=== PATIENT | female | born 1930 | race Caucasian/White ===

== ENCOUNTER 2018-08-07 13:44 | Emergency (ER) | payer OTHER, MEDICARE ==
--- OUTSIDE RECORDS SUMMARY | 2018-08-07 13:48 | XMS REPORT | Clinical Summary ---
:1930 Author Organization [facility] Address [address] [place] [id number] Care Team Providers Name Role Phone Chandni Brown MD Primary Care Provider Allergies Active Allergy Reactions Severity Noted Date Comments Ciprofloxacin Diarrhea 08/11/2016 Penicillins Other (See Comments) 08/11/2016 Medications Medication Sig Dispensed Refills Start Date End Date Status aspirin (ECOTRIN) 81 MG Take 81 mg by 0 Active enteric coated tablet mouth daily. Active Problems Not on file Social History Tobacco Use Types Packs/Day Years Used Date Never Smoker Alcohol Use Drinks/Week oz/Week Comments No Sex Assigned at Date Recorded Not on file Job Start Date Occupation Industry Not on file Not on file Not on file Travel History Travel Start Travel End No recent travel history available. Last Filed Vital Signs Not on file Plan of Treatment Health Maintenance Due Date Last Done Comments SHINGLES VACCINES (#1) 1978 65+ PNEUMOCOCCAL VACCINE (2 of 2 - PPSV23) 1993 08/24/1993, 08/24/1993 INFLUENZA VACCINE 10/01/2018 12/19/2015 Results Not on fileafter 08/06/2017 Insurance Payer Benefit Plan / Subscriber ID Effective Dates Phone Address Type Group MEDICARE MEDICARE PART A xxxxxxxxxx 1993-Present [place], [place] Medicare AND B AARP AARP SUPPLEMENT xxxxxxxxxxx 2015-Present Commercial Advance Directives Patient has advance care planning documents on file. For more information, please contact:Ramiro [id number] [facility] [address]
--- OUTSIDE RECORDS SUMMARY | 2018-08-07 13:48 | XMS REPORT ---
:1930 [facility] Address [address] [place] [address] Dr. Scanlon [address] [place] [id number] Care Team Providers Name Role Phone Unavailable Unavailable Unavailable Problems This patient has no known problems. Allergies, Adverse Reactions, Alerts This patient has no known allergies or adverse reactions. Medications This patient has no known medications.
--- NOTE | 2018-08-07 15:12 | RAD REPORT ---
EXAM DESCRIPTION: Ana Cristina Single View08/07/2018 3:01 pm CLINICAL HISTORY: cough COMPARISON: 2017 FINDINGS: Right basilar opacities are present. Right hemidiaphragm remains elevated The lung appears clear of acute infiltrate. The heart is normal size IMPRESSION: Right basilar opacities probably representing atelectasis or pneumonia
[2018-08-07 15:19] LABS: Absolute Lymphocytes (CBC) 2.1 K/uL (0.7-4.9); Absolute Monocytes 0.6 K/uL (0.1-1.3); Absolute Neutrophil 5.4 K/uL (1.8-8.0); Basophils % 0.9 % (0-1.3); Eosinophils % 2.1 % (0-4.4); Hematocrit 41.3 % (36.0-45.0); Lymphocytes % 25.6 % (15.3-44.8); MPV 8.9 fL (7.6-11.3); Monocytes % 6.7 % (3.3-12.3); RBC Red Blood Cell Count 4.66 M/uL (3.86-4.86)
[2018-08-07 15:29] LABS: Protime INR 0.93
[2018-08-07 15:38] LABS: ALT/SGPT 33 U/L (12-78); AST/SGOT 19 U/L (15-37); Albumin 3.2 g/dL (3.4-5.0); Alkaline Phosphatase 129 U/L (45-117); BUN Blood Urea Nitrogen 20 mg/dL (7-18); Bicarbonate 32 mmol/L (21-32); Bilirubin Direct < 0.1 mg/dL (0-0.2); Bilirubin Total 0.2 mg/dL (0.2-1.0); Glucose Level 205 mg/dL (74-106); Magnesium 2.2 mg/dL (1.8-2.4); NT PRO-BNP 622 pg/mL (<450); Protein, Total 7.6 g/dL (6.4-8.2); Sodium Level 141 mmol/L (136-145); Troponin (Emerg Dept Use Only) < 0.02 ng/mL (0.0-0.045)
[2018-08-07] MEDS ORDERED: CEFTRIAXONE/SWI 1gm 1 GM/10 ML SYR ONE (16:41)
--- NOTE | 2018-08-07 17:05 | EDPHYS ---
Physician Documentation [facility] Name: Yue Castorena Age: 87 yrs Sex: Female : 1930 Arrival Date: 08/07/2018 Time: 14:07 Bed 26 Private MD: ED Physician Gelacio Florian HPI: 08/07 14:56 This 87 yrs old Female presents to ER via EMS with complaints of Leg Swelling.pm1 14:56 The patient presents with swelling. The complaints affect the left leg and right leg. pm1 Context: The problem was sustained at home, resulted from possible volume overload, the patient is not able to bear weight, the patient is not able to ambulate, wheelchair bound. 14:56 Onset: The symptoms/episode began/occurred and became worse today, chronic swelling to pm1 lower extermities. Modifying factors: The symptoms are alleviated by nothing. the symptoms are aggravated by nothing. Associated signs and symptoms: Pertinent positives: cough, Pertinent negatives calf tenderness, fever, shortness of breath, chest pain. Treatment prior to arrival includes: no previous treatment. Severity of symptoms: in the emergency department the symptoms are actually worse. The patient has not recently seen a physician, the patient's primary care provider is Dr. Billy. Historical: - Allergies: 14:22 PENICILLINS; ca1 - Home Meds: 14:22 donepezil 23 mg Oral tab 1 tab once daily [Active]; furosemide 20 mg Oral tab 3 tabs 2 ca1 times per day [Active]; verapamil 240 mg Oral TbER 1 tab once daily [Active]; sertraline 100 mg oral tab 1.5 tabs once daily [Active]; Zantac 150 mg Oral tab 1 tab once daily [Active]; Vitamin D3 2,000 unit Oral cap daily [Active]; memantine oral 28mg oral 1 cap once daily [Active]; anastrozole 1 mg oral tab 1 tab once daily [Active]; potassium chloride 10 mEq Oral cpER 1 cap once daily [Active]; - PMHx: 14:22 Depression; Diabetes - NIDDM; EDEMA; Hypertension; Kidney problems; Guaman"s Palsy; ca1 Breast Cancer; - PSHx: 14:22 Joint replacement; Knee Replacement (R); Lumpectomy; Cholecystectomy; Hysterectomy; ca1 - Immunization history:: Adult Immunizations up to date. - Social history:: Smoking status: Patient/guardian denies using tobacco. - Ebola Screening: : Patient negative for fever greater than or equal to 101.5 degrees Fahrenheit, and additional compatible Ebola Virus Disease symptoms Patient denies exposure to infectious person Patient denies travel to an Ebola-affected area in the 21 days before illness onset. ROS: 14:56 Constitutional: Negative for fever, chills, and weight loss, Eyes: Negative for injury, pm1 pain, redness, and discharge, ENT: Negative for injury, pain, and discharge, Neck: Negative for injury, pain, and swelling. 14:56 Abdomen/GI: Negative for abdominal pain, nausea, vomiting, diarrhea, and constipation, Back: Negative for injury and pain, MS/Extremity: Negative for injury and deformity, Skin: Negative for injury, rash, and discoloration, Neuro: Negative for headache, weakness, numbness, tingling, and seizure. 14:56 Cardiovascular: Positive for edema, Negative for chest pain, orthopnea, palpitations. 14:56 Respiratory: Positive for cough, Negative for shortness of breath, sputum production, wheezing. Exam: 14:56 Constitutional: This is a well developed, well nourished patient who is awake, alert, pm1 and in no acute distress. Head/Face: Normocephalic, atraumatic. Eyes: Pupils equal round and reactive to light, extra-ocular motions intact. Lids and lashes normal. Conjunctiva and sclera are non-icteric and not injected. Cornea within normal limits. Periorbital areas with no swelling, redness, or edema. ENT: Nares patent. No nasal discharge, no septal abnormalities noted. Tympanic membranes are normal and external auditory canals are clear. Oropharynx with no redness, swelling, or masses, exudates, or evidence of obstruction, uvula midline. Mucous membranes moist. Neck: Trachea midline, no thyromegaly or masses palpated, and no cervical lymphadenopathy. Supple, full range of motion without nuchal rigidity, or vertebral point tenderness. No Meningismus. Chest/axilla: Normal chest wall appearance and motion. Nontender with no deformity. No lesions are appreciated. 14:56 Abdomen/GI: Soft, non-tender, with normal bowel sounds. No distension or tympany. No guarding or rebound. No evidence of tenderness throughout. Back: No spinal tenderness. No costovertebral tenderness. Full range of motion. Skin: Warm, dry with normal turgor. Normal color with no rashes, no lesions, and no evidence of cellulitis. MS/ Extremity: Pulses equal, no cyanosis. Neurovascular intact. Full, normal range of motion. 14:56 Cardiovascular: Rate: normal, Rhythm: regular, Pulses: no pulse deficits are appreciated, Heart sounds: normal, normal S1and S2, no murmur, no rub, no gallop, Edema: pedal edema, that is mild. 14:56 Respiratory: the patient does not display signs of respiratory distress, Respirations: normal, Breath sounds: rales, are not appreciated, bronchial sounds, are not appreciated, decreased breath sounds, are heard in the right posterior lower lobe, rhonchi, are not appreciated, wheezing: is not appreciated. 14:56 Neuro: Orientation: is normal, Motor: is normal, moves all fours, Sensation: is normal, no obvious gross deficits. Vital Signs: 14:08 BP 125 / 54; Pulse 85; Resp 20; Temp 98.2(O); Pulse Ox 95% ; lt1 14:22 BP 109 / 52; Pulse 86; Resp 19 S; Temp 98.2(O); Pulse Ox 96% on R/A; Weight 83.91 kg; ca1 Height 5 ft. 2 in. (157.48 cm); Pain 0/10; 15:32 BP 153 / 55; Pulse 85; Resp 19 S; Temp 98(O); Pulse Ox 96% on R/A; ca1 16:23 BP 147 / 78; Pulse 83; Resp 18 S; Temp 98.1(O); Pulse Ox 97% ; ca1 17:33 BP 134 / 77; Pulse 95; Resp 17 S; Temp 98(O); Pulse Ox 96% on R/A; ca1 14:22 Body Mass Index 33.84 (83.91 kg, 157.48 cm) ca1 MDM: 14:32 Patient medically screened. pm1 17:04 Data reviewed: vital signs. Data interpreted: Pulse oximetry: on room air is 97 %. pm1 Interpretation: normal. Counseling: I had a detailed discussion with the patient and/or guardian regarding: the historical points, exam findings, and any diagnostic results supporting the discharge/admit diagnosis, lab results, radiology results, the need for outpatient follow up, to return to the emergency department if symptoms worsen or persist or if there are any questions or concerns that arise at home. 08/07 14:41 Order name: Basic Metabolic Panel; Complete Time: 15:51 pm1 08/07 14:41 Order name: CBC with Diff; Complete Time: 15:51 pm1 08/07 14:41 Order name: LFT's; Complete Time: 15:51 pm1 08/07 14:41 Order name: Magnesium; Complete Time: 15:51 pm1 08/07 14:41 Order name: NT PRO-BNP; Complete Time: 15:51 pm1 08/07 14:41 Order name: PT-INR; Complete Time: 15:51 pm1 08/07 14:41 Order name: Troponin (emerg Dept Use Only); Complete Time: 15:51 pm1 08/07 14:41 Order name: XRAY Chest (1 view) pm1 08/07 14:41 Order name: EKG; Complete Time: 14:47 pm1 08/07 15:32 Order name: RAD; Complete Time: 15:51 EDMS 08/07 15:53 Order name: Procalcitonin; Complete Time: 17:04 pm1 08/07 15:53 Order name: Lactate; Complete Time: 16:46 pm1 08/07 15:53 Order name: Blood Culture Adult (2) pm08/07 14:41 Order name: Cardiac monitoring; Complete Time: 15:06 pm1 08/07 14:41 Order name: EKG - Nurse/Tech; Complete Time: 15:06 pm1 08/07 14:41 Order name: IV Saline Lock; Complete Time: 15:06 pm08/07 14:41 Order name: Labs collected and sent; Complete Time: 15:06 pm1 08/07 14:41 Order name: O2 Per Protocol; Complete Time: 15:06 pm1 08/07 14:41 Order name: O2 Sat Monitoring; Complete Time: 15:06 pm1 EC:52 Rate is 79 beats/min. Rhythm is regular. QRS [place] is Normal. No Q waves. T waves are pm1 Normal. No ST changes noted. Clinical impression: Normal ECG. Administered Medications: 16:36 Drug: Rocephin 1 grams Route: IV; Rate: calculated rate; Site: left antecubital; ca1 17:00 Follow up: Response: No adverse reaction; IV Status: Completed infusion ca1 Disposition: 08/08 07:28 Co-signature as Attending Physician, Gelacio Florian MD. rn Disposition: 08/07/18 17:05 Discharged to Home. Impression: Peripheral edema, Cough, Atelectasis. - Condition is Stable. - Discharge Instructions: Atelectasis, Adult, Cough, Adult, Peripheral Edema. - Prescriptions for Zithromax Z- [place] 250 mg Oral Tablet - take 1 tablet by ORAL route as directed for 5 days Day 1 - take two (2) tablets one time. Day 2, 3, 4 , 5 take one (1) tablet once daily.; 6 tablet. - Medication Reconciliation Form, Thank You Letter, Antibiotic Education, Prescription Opioid Use form. - Follow up: Emergency Department; When: As needed; Reason: Worsening of condition. Follow up: Private Physician; When: 2 - 3 days; Reason: Recheck today's complaints, Continuance of care, Re-evaluation by your physician. - Problem is new. - Symptoms have improved. Signatures: Dispatcher [employer] EDMS Gelacio Florian MD MD rn Marinas, Patrick, MALIK PROFESSOR OF BUSINESS ADMINISTRATION pm1 Lori Dennis RN RN ca1 Corrections: (The following items were deleted from the chart) 08/07 17:18 17:05 08/07/2018 17:05 Discharged to Home. Impression: Pedal edema. Condition is pm1 Stable. Forms are Medication Reconciliation Form, Thank You Letter, Antibiotic Education, Prescription Opioid Use. Follow up: Emergency Department; When: As needed; Reason: Worsening of condition. Follow up: Private Physician; When: 2 - 3 days; Reason: Recheck today's complaints, Continuance of care, Re-evaluation by your physician. Problem is new. Symptoms have improved. pm1 17:18 17:18 08/07/2018 17:05 Discharged to Home. Impression: Pedal edema; Cough; Atelectasis. pm1 Condition is Stable. Forms are Medication Reconciliation Form, Thank You Letter, Antibiotic Education, Prescription Opioid Use. Follow up: Emergency Department; When: As needed; Reason: Worsening of condition. Follow up: Private Physician; When: 2 - 3 days; Reason: Recheck today's complaints, Continuance of care, Re-evaluation by your physician. Problem is new. Symptoms have improved. pm1 17:36 17:18 08/07/2018 17:05 Discharged to Home. Impression: Peripheral edema; Cough; ca1 Atelectasis. Condition is Stable. Discharge Instructions: Atelectasis, Adult, Cough, Adult, Peripheral Edema. Forms are Medication Reconciliation Form, Thank You Letter, Antibiotic Education, Prescription Opioid Use. Follow up: Emergency Department; When: As needed; Reason: Worsening of condition. Follow up: Private Physician; When: 2 - 3 days; Reason: Recheck today's complaints, Continuance of care, Re-evaluation by your physician. Problem is new. Symptoms have improved. pm1
--- NOTE | 2018-08-07 17:05 | ER ---
Nurse's Notes [facility] Name: Yue Castorena Age: 87 yrs Sex: Female : 1930 Arrival Date: 08/07/2018 Time: 14:07 Bed 26 Private MD: Diagnosis: Peripheral edema;Cough;Atelectasis Presentation: 08/07 14:12 Presenting complaint: EMS states: we got called in for Lower Leg Edema , both legs that ca1 has gotten worst today. She also had on and off cough and worst today. Assisted living is afraid she might have fluid in her lungs. VS are stable. She has dementia. She appears confused but cooperative. Transition of care: patient [facility]. Onset of symptoms was August 07, 2018. Risk Assessment: Do you want to hurt yourself or someone else? Patient reports no desire to harm self or others. Initial Sepsis Screen: Does the patient meet any 2 criteria? No. Patient's initial sepsis screen is negative. Does the patient have a suspected source of infection? No. Patient's initial sepsis screen is negative. Care prior to arrival: None. 14:12 Method Of Arrival: EMS: [place] [id number] 14:12 Acuity: ABHIJIT 3 ca1 Triage Assessment: 14:22 General: Appears in no apparent distress. comfortable, Behavior is calm, cooperative, ca1 appropriate for age. Pain: Denies pain. Historical: - Allergies: 14:22 PENICILLINS; ca1 - Home Meds: 14:22 donepezil 23 mg Oral tab 1 tab once daily [Active]; furosemide 20 mg Oral tab 3 tabs 2 ca1 times per day [Active]; verapamil 240 mg Oral TbER 1 tab once daily [Active]; sertraline 100 mg oral tab 1.5 tabs once daily [Active]; Zantac 150 mg Oral tab 1 tab once daily [Active]; Vitamin D3 2,000 unit Oral cap daily [Active]; memantine oral 28mg oral 1 cap once daily [Active]; anastrozole 1 mg oral tab 1 tab once daily [Active]; potassium chloride 10 mEq Oral cpER 1 cap once daily [Active]; - PMHx: 14:22 Depression; Diabetes - NIDDM; EDEMA; Hypertension; Kidney problems; Guaman"s Palsy; ca1 Breast Cancer; - PSHx: 14:22 Joint replacement; Knee Replacement (R); Lumpectomy; Cholecystectomy; Hysterectomy; ca1 - Immunization history:: Adult Immunizations up to date. - Social history:: Smoking status: Patient/guardian denies using tobacco. - Ebola Screening: : Patient negative for fever greater than or equal to 101.5 degrees Fahrenheit, and additional compatible Ebola Virus Disease symptoms Patient denies exposure to infectious person Patient denies travel to an Ebola-affected area in the 21 days before illness onset. Screenin:10 Abuse screen: Denies threats or abuse. Denies injuries from another. Nutritional ca1 screening: No deficits noted. Tuberculosis screening: No symptoms or risk factors identified. Fall Risk Secondary diagnosis (15 points) dementia, IV access (20 points). Ambulatory Aid- Crutches/Cane/Walker (15 pts). Assessment: 14:10 General: Appears in no apparent distress. comfortable, Behavior is calm, cooperative, ca1 appropriate for age. Pain: Denies pain. Neuro: Level of Consciousness is awake, alert, obeys commands, Oriented to person. Cardiovascular: Heart tones S1 S2 present Capillary refill < 3 seconds Patient's skin is warm and dry. Rhythm is sinus rhythm. Respiratory: Airway is patent Respiratory effort is even, unlabored, Respiratory pattern is regular, symmetrical, Breath sounds are clear bilaterally. Respiratory: Parent/caregiver reports the patient having cough that is non-productive, since few days but worst today. GI: Abdomen is flat, non-distended, Bowel sounds present X 4 quads. Abd is soft and non tender X 4 quads. : No deficits noted. No signs and/or symptoms were reported regarding the genitourinary system. EENT: No deficits noted. No signs and/or symptoms were reported regarding the EENT system. Derm: Skin is intact, is healthy with good turgor, Skin is pink, warm \\T\\ dry. Musculoskeletal: Circulation, motion, and sensation intact. Capillary refill < 3 seconds, Swelling present in right foot, left foot, right leg and left leg. 15:17 Reassessment: Patient appears in no apparent distress at this time. Patient and/or ca1 family updated on plan of care and expected duration. Pain level reassessed. Patient is alert, oriented x 3, equal unlabored respirations, skin warm/dry/pink. Family at bedside. 16:20 Reassessment: Patient appears in no apparent distress at this time. Patient is alert, ca1 oriented x 3, equal unlabored respirations, skin warm/dry/pink. 17:33 Reassessment: Patient appears in no apparent distress at this time. Patient is alert, ca1 oriented x 3, equal unlabored respirations, skin warm/dry/pink. Assisted pt to wheelchair.. Nurse Tammi and Tomas assisted pt to car. Pt tolerated well. Family with pt. Vital Signs: 14:08 BP 125 / 54; Pulse 85; Resp 20; Temp 98.2(O); Pulse Ox 95% ; lt1 14:22 BP 109 / 52; Pulse 86; Resp 19 S; Temp 98.2(O); Pulse Ox 96% on R/A; Weight 83.91 kg; ca1 Height 5 ft. 2 in. (157.48 cm); Pain 0/10; 15:32 BP 153 / 55; Pulse 85; Resp 19 S; Temp 98(O); Pulse Ox 96% on R/A; ca1 16:23 BP 147 / 78; Pulse 83; Resp 18 S; Temp 98.1(O); Pulse Ox 97% ; ca1 17:33 BP 134 / 77; Pulse 95; Resp 17 S; Temp 98(O); Pulse Ox 96% on R/A; ca1 14:22 Body Mass Index 33.84 (83.91 kg, 157.48 cm) ca1 ED Course: 14:07 Patient arrived in ED. ss 14:12 Lori Dennis, FLAVIO is Primary Nurse. ca1 14:15 Triage completed. ca1 14:22 Arm band placed on right wrist. ca1 14:26 Ambrosio Gibbs NP is PHCP. pm1 14:26 Gelacio Florian MD is Attending Physician. pm1 14:30 Patient has correct armband on for positive identification. Placed in gown. Bed in low ca1 position. Call light in reach. Side rails up X2. 14:30 differential specialist on. Pulse ox on. NIBP on. Warm blanket given. ca1 14:30 No provider procedures requiring assistance completed. ca1 15:07 Initial lab(s) drawn, by me, sent to lab. Inserted saline lock: 22 gauge in right lt1 antecubital area, using aseptic technique. 16:03 Inserted saline lock: 22 gauge in left antecubital area, using aseptic technique. Blood ca1 collected. 16:05 First set of blood cultures drawn by me. ca1 16:21 IV discontinued, intact, bleeding controlled, No redness/swelling at site. Pressure ca1 dressing applied, lumpectomy and breast CA on R side. 16:35 Second set of blood cultures drawn by me. ca1 17:35 IV discontinued, intact, bleeding controlled, No redness/swelling at site. Pressure ca1 dressing applied. Administered Medications: 16:36 Drug: Rocephin 1 grams Route: IV; Rate: calculated rate; Site: left antecubital; ca1 17:00 Follow up: Response: No adverse reaction; IV Status: Completed infusion ca1 Outcome: 17:05 Discharge ordered by MD. pm1 17:36 Discharged to home via wheelchair, with family. ca1 17:36 Condition: stable 17:36 Discharge instructions given to DAUGTHERS Instructed on discharge instructions, follow up and referral plans. medication usage, Demonstrated understanding of instructions, follow-up care, medications, Prescriptions given X 1. 17:36 Patient left the ED. ca1 Signatures: Elizabeth Mcallister RN RN ss Ambrosio Gibbs, HOUSE ADMIN HOUSE ADMIN pm1 Lori Dennis RN RN ca1 Daphnie, Charu lt1 Corrections: (The following items were deleted from the chart) 15:17 14:10 Patient has correct armband on for positive identification. Placed in gown. Bed ca1 in low position. Call light in reach. Side rails up X2. ca1 15:17 14:10 differential specialist on. Pulse ox on. NIBP on. ca1 ca1 15:17 14:10 Warm blanket given. ca1 ca1 15:18 14:10 Musculoskeletal: Circulation, motion, and sensation intact. Capillary refill < 3 ca1 seconds, ca1 16:23 16:20 BP 105 / 55; Pulse 85bpm; Resp 19bpm; Spontaneous; Pulse Ox 96% RA; Temp 98F ca1 Oral; ca1
[2018-08-07 18:13] VITALS: BP 134/77; TEMP 98; O2SAT 96
--- NOTE | 2018-08-08 09:03 | EKG ---
Test Date: 2018-08-07 Test Time: 14:51:05 Clearing Inspector: KIMMY MEASUREMENT RESULTS: Intervals: Rate: 79 WA: 164 QRSD: 76 QT: 406 QTc: 465 [place]: P: 40 WA: 164 QRS: 7 T: 90 INTERPRETIVE STATEMENTS: Normal sinus rhythm Normal ECG Compared to ECG 01/24/2017 14:06:20 Sinus arrhythmia no longer present ST (T wave) deviation no longer present Electronically Signed On 08-08-18 09:00:54 CDT by Asif Bauer
== END 2018-08-07 17:36 | disposition home or self-care (01) ==
LOC: ER 13:44
DX: R60.9 Edema, unspecified (principal); R05 Cough; J98.11 Atelectasis; E11.9 Type 2 diabetes mellitus without complications; I10 Essential (primary) hypertension; C50.919 Malignant neoplasm of unspecified site of unspecified female breast; F32.9 Major depressive disorder, single episode, unspecified; Z88.0 Allergy status to penicillin
CPT/HCPCS: 96365; 93005; 87040 ×2; 85025; 80048; 36415; 83735; 87205; 85610; 80076; 83605; 84484; 84145; 83880; 71045; 99284; J0696